=== PATIENT | male | born 1975 | race Caucasian/White ===

== ENCOUNTER 2017-03-14 17:35 | Emergency (ER) | payer SELFPAY ==
--- NOTE | 2017-03-20 14:40 | ER ---
ADMIT: 03/14/2017 RM/LOC: ER [facility] MR#: [id number] [id number] NORMA HANCOCK [facility] [address] [place] [address] Emergency Room Report SEX: M AGE: 41 : 1975 DATE: 03/14/2017 ADDENDUM: This patient comes into the ER because he has had a month of having back pain. He works at [employer] where he does a lot of heavy lifting. The last 2 days, he did some heavy lifting and now he feels like he is really injured his back. Has difficulty getting in and out of sitting position. His pain is in the lower lumbar spine and goes down to both buttocks. He does ambulate without any difficulty, but he does have difficulty getting into an upright position. He was given Valium and Toradol in the ER. I wrote a prescription for Valium and meloxicam, and he is to do no lifting for the next week. If he is not better, he needs to follow up with Dr. Obrien. Please see my T-sheet. AMI Nick / Vance Elias MD / medhat JOB #: [id number] CC: Rohit Nickerson MD, Attending Physician Suhail Obrien MD, Family Physician
== END 2017-03-14 20:42 | disposition home or self-care (01) ==
LOC: ER 17:35
DX: S39.012A Strain of muscle, fascia and tendon of lower back, initial encounter (principal); X50.0XXA Overexertion from strenuous movement or load, initial encounter; Z88.0 Allergy status to penicillin